=== PATIENT | male | born 1960 | race African-American/Black ===

== ENCOUNTER 2018-08-11 00:07 | Emergency (ER) | payer MEDICAID, OTHER ==
[~2018-08-11] VITALS: Ht 165.1 cm; Wt 100.0 kg
[~2018-08-11 00:07] MED LIST: ALBU18HF2 INH; TIOT18CA3 INH
[2018-08-11 00:23] VITALS: BP 143/77
[2018-08-11] MEDS ORDERED: ALBU8HFA PO (00:49)
== END 2018-08-11 00:59 | disposition home or self-care (01) ==
LOC: ER 00:08
DX: F10.129 Alcohol abuse with intoxication, unspecified (principal); Z02.89 Encounter for other administrative examinations; R06.02 Shortness of breath; J45.909 Unspecified asthma, uncomplicated; M19.90 Unspecified osteoarthritis, unspecified site; F12.90 Cannabis use, unspecified, uncomplicated; F17.210 Nicotine dependence, cigarettes, uncomplicated; Z88.8 Allergy status to other drugs, medicaments and biological substances; Z79.899 Other long term (current) drug therapy; Y90.9 Presence of alcohol in blood, level not specified; Z59.0 Homelessness
CPT/HCPCS: 99283